=== PATIENT | female | born 1965 | race Caucasian/White ===

== ENCOUNTER 2017-08-30 09:46 | Day surgery (SDC) ==
[2017-08-30] MEDS ORDERED: LIDOCAINE 1% 20 ML MDV ID STA (11:12)
[2017-08-30] MEDS ORDERED: DIPRIVAN 20 ML VIAL IVP ONE (12:10)
[2017-08-30] MEDS ORDERED: VERSED ONE (12:10)
[2017-08-30 13:01] VITALS: BP 140/92; TEMP 98.2
--- NOTE | 2017-08-31 09:00 | OP ---
PROCEDURE: COLONOSCOPY TO THE CECUM WITH SNARE POLYPECTOMY. ENDOSCOPIST: Luis E MCDOWELL M.D. INDICATION: SCREENING INSTRUMENT: PCFH-190. MEDICATION: PER ANESTHESIA. PROCEDURE: The patient was positioned for colonoscopy. The digital rectal exam was negative. The colonoscope was inserted through the anus and advanced to the cecum. The cecum was identified using the ileocecal valve and the appendiceal orifice as landmarks. The scope was slowly withdrawn through an adequately prepped colon. Careful inspection was made of each colonic segment. The scope was withdrawn in a circumferential fashion. Care was taken to inspect the proximal side of the ileocecal valve, haustral folds, flexures and rectal valves. Small polyp at 20cm removed using snare cautery. Retroflex exam with otherwise normal. The patient tolerated the procedure well without immediate complication. Withdrawal time 11 minutes and 20 seconds. PLAN: 1. Suggest repeat colonoscopy in 5-10 years. CC: Dr. Frankie QUINN
== END 2017-08-30 13:11 | disposition home or self-care (01) ==
LOC: SURG 09:46
PROVIDERS: ATTEND Internal Medicine Gastroenterology
DX: Z12.11 Encounter for screening for malignant neoplasm of colon (principal); D12.5 Benign neoplasm of sigmoid colon